=== PATIENT | male | born 1950 ===

== ENCOUNTER 2022-07-23 06:06 | Day surgery (SDC) | payer OTHER ==
[~2022-07-23 06:06] MED LIST: ASA81 MG PO; AVELOX ABC PAC400 MG PO; COREG CR10 MG PO; FLAGYL375 MG PO; METFORMIN HYDRO25 GM MC; MICROZIDE12.5 MG PO; SIMVASTATIN10 MG PO
== END 2022-07-23 12:05 | disposition home or self-care (01) ==
LOC: AMB-ENDOS 06:06
PROVIDERS: ATTEND Colon & Rectal Surgery
DX: D12.2 Benign neoplasm of ascending colon (principal); R19.4 Change in bowel habit; K64.2 Third degree hemorrhoids; Z20.822 Contact with and (suspected) exposure to COVID-19